=== PATIENT | female | born 1975 | race Caucasian/White ===

== ENCOUNTER 2017-03-14 13:42 | Inpatient (IN) | payer MEDICARE ==
[2017-03-14] MEDS ORDERED: Sodium Chloride 0.45% 1,000 ML IV ONE (13:54)
--- NOTE | 2017-03-14 14:03 | ED Physician Chart ---
Chief Complaint/HPI - Patient Information Date Seen:: 03/14/17 Time Seen:: 13:58 Chief Complaint:: DIABETES UNCONTROLLED History of Present Illness:: THIS IS A 42 YO SENT FROM AN ECF ON A 14 DAY HOLD FOR SUICIDAL ATTEMPT TWO DAYS AGO. SHE WAS SENT HERE FOR EVALUATION AND TREATMENT OF HER CONDITION. THE GLUCOSE HAS BEEN UNCONTROLLED AND SHE HAS HAD SIGNIFICANT VOMITING. WITH COMPLAINTS OF ABDOMINAL PAIN. SHE FOUND TO BE POSITIVE FOR METHAMPHETAMINES OVER THE LAST FEW DAYS. Allergies:: Allergies Allergy/AdvReac Type Severity Reaction Status Date / Time Penicillins [PCN] AdvReac Verified 03/14/17 13:46 Vitals:: Vital Signs - 8 hr 03/14/17 13:47 Temp 97.4 F HR 70 RR 16 BP 122/72 O2 Sat % 98 Historian:: EMS, Medical Records Review:: Nurse's Note Reviewed Review of Systems - Review of Systems General/Constitutional: No fever, No chills, No weight loss, No weakness, No diaphoresis, No edema, No loss of appetite, Other (THE PATIENT IS UNABLE TO GIVE AN ACCURATE REVIEW SYSTEMS AT THIS TIME.) Skin: No skin lesions, No rash, No bruising Head: No headache, No light-headedness Eyes: No loss of vision, No pain, No diplopia ENT: No earache, No nasal drainage, No sore throat, No tinnitus Neck: No neck pain, No swelling, No thyromegaly, No stiffness, No mass noted Cardio Vascular: No chest pain, No palpitations, No PND, No orthopnea, No edema Pulmonary: No SOB, No cough, No sputum, No wheezing GI: No nausea, No vomiting, No diarrhea, No pain, No melena, No hematochezia, No constipation, No hematemesis G/U: No dysuria, No frequency, No hematuria Musculoskeletal: No bone or joint pain, No back pain, No muscle pain Endocrine: No polyuria, No polydipsia Psychiatric: No prior psych history, No depression, No anxiety, No suicidal ideation Hematopoietic: No bruising, No lymphadenopathy Allergic/Immuno: No urticaria, No angioedema Neurological: No syncope, No focal symptoms, No weakness, No paresthesia, No headache, No seizure, No dizziness, No confusion, No vertigo Past Medical History - Past Medical History Obtainable: Yes Past Medical History: DM, Other (PSYCHOSIS AND DRUG ABUSER) Family History: None Social History: Smoker, No Alcohol, No Drug Use (METH) Surgical History: Cholecystectomy Family Medical History - Family Member Nephew History Unknown: Yes Physical Exam - Physical Examination General/Constitutional: Well-developed, well-nourished, Alert, No distress, GCS 15, Non-toxic appearing, Ambulatory Other Gen/Cons comments:: LETHARGIC AND RETCHING Head: Atraumatic Eyes: Lids, conjuctiva normal, PERRL, EOMI Skin: Nl inspection, No rash, No skin lesions, No ecchymosis, Well hydrated, No lymphadenopathy ENMT: External ears, nose nl, Nasal exam nl, Lips, teeth, gums nl Neck: Nontender, Full ROM w/o pain, No JVD, No nuchal rigidity, No bruit, No mass, No stridor Respiratory: Nl effort/Exclusion, Clear to Auscultation, No Wheeze/Rhonchi/Rales Cardio Vascular: RRR, No murmur, gallop, rubs, NL S1 S2 GI: No organomegaly, No hernia, Normal BS's, Nondistended, No mass/bruits, No McBurney tenderness Other GI comments:: GENERALIZED TENDERNESS OF THE ABDOMEN : No CVA tenderness Extremities: No tenderness or effusion, Full ROM, normal strength in all extremities, No edema, Normal digits & nails Neuro/Psych: Alert/oriented, DTR's symmetric, Normal sensory exam, Normal motor strength, Judgement/insight normal, Mood normal, Normal gait, No focal deficits Misc: normal gait, Normal back, No paraspinal tenderness Labs/Radiology/EKG Results - Lab Results Results: Laboratory Tests 03/14/17 13:49 POC Glucose 217 H Abnormal Lab Results 03/14/17 03/14/17 03/14/17 13:49 14:00 14:00 WBC RBC Hgb Hct MCV MCH MCHC Differential RDW Plt Count MPV Specimen Source Sample Site pH pCO2 pO2 HCO3 Base Excess O2 Saturation Avelino Test Vent Rate Inspired O2 Tidal Volume PEEP Pressure (ins/psv/peep) Critical Value Sodium Potassium Chloride Carbon Dioxide Anion Gap BUN Creatinine Est GFR ( Amer) Est GFR (Non-Af Amer) BUN/Creatinine Ratio Glucose POC Glucose 217 H Hemoglobin A1c % Calcium Total Bilirubin AST ALT Alkaline Phosphatase Troponin I 0.01 Total Protein Albumin Globulin Albumin/Globulin Ratio Triglycerides 100 Cholesterol 152 LDL Cholesterol Direct 80 HDL Cholesterol 65 TSH 03/14/17 03/14/17 03/14/17 14:00 14:35 14:40 WBC 12.9 H RBC 4.57 Hgb 12.6 Hct 38.3 MCV 83.8 MCH 27.6 MCHC Differential 32.9 RDW 15.7 Plt Count 346 MPV 8.2 Specimen Source Sample Site pH pCO2 pO2 HCO3 Base Excess O2 Saturation Avelino Test Vent Rate Inspired O2 Tidal Volume PEEP Pressure (ins/psv/peep) Critical Value Sodium 130 L Potassium 4.2 Chloride 102 Carbon Dioxide 16.7 L Anion Gap 15.5 BUN 22 Creatinine 0.6 Est GFR ( Amer) > 60.0 Est GFR (Non-Af Amer) > 60.0 BUN/Creatinine Ratio 36.7 Glucose 231 H POC Glucose Hemoglobin A1c % Calcium 9.5 Total Bilirubin 0.7 AST 12 L ALT 19 Alkaline Phosphatase 95 Troponin I Total Protein 7.7 Albumin 4.6 Globulin 3.1 Albumin/Globulin Ratio 1.5 Triglycerides Cholesterol LDL Cholesterol Direct HDL Cholesterol TSH 0.80 03/14/17 03/14/17 14:40 16:00 WBC RBC Hgb Hct MCV MCH MCHC Differential RDW Plt Count MPV Specimen Source Arterial Sample Site Right Radial pH 7.41 pCO2 41.0 pO2 98.0 HCO3 25.9 Base Excess 1.2 O2 Saturation 98.0 Avelino Test YES Vent Rate NA Inspired O2 21 Tidal Volume NA PEEP NA Pressure (ins/psv/peep) NA Critical Value E.PICHARDO Sodium Potassium Chloride Carbon Dioxide Anion Gap BUN Creatinine Est GFR ( Amer) Est GFR (Non-Af Amer) BUN/Creatinine Ratio Glucose POC Glucose Hemoglobin A1c % 9.4 H Calcium Total Bilirubin AST ALT Alkaline Phosphatase Troponin I Total Protein Albumin Globulin Albumin/Globulin Ratio Triglycerides Cholesterol LDL Cholesterol Direct HDL Cholesterol TSH - EKG Interpretations EKG Time:: 17:59 Rate & Rhythm: 78, SINUS [place]: LEFT AXIS Assessment - Assessment General Assessment: DIABETES MELLITUS UNCONTROLLED SUICIDAL ATTEMPT DIABETIC FOOT ULCER. DRUG ABUSE ED Septic Shock - . Is Septic Shock (SBP<90, OR Lactate>4 mmol\L) present?: No - <6hrs of presentation: Vital Signs: Vital Signs - 8 hr 03/14/17 13:47 Temp 97.4 F HR 70 RR 16 BP 122/72 O2 Sat % 98 Reassessment (Disposition) - Reassessment Reassessment Condition:: Improved - Diagnosis Diagnosis:: DIABETES MELLITUS UNCONTROLLED DIABETIC FOOT ULCER SUICIDAL ATTEMPT DRUG ABUSE - Patient Disposition Discharge/Transfer:: Acute Care w/in this hosp Admitted to:: Telemetry Admitting Medical Physician:: Shaka Blankenship Condition at Disposition:: Improved ED Discharge Plan - Patient Disposition Admit/Discharge/Transfer: Acute Care w/in this hosp Condition at Disposition: Guarded
[2017-03-14 14:54] LABS: HEMATOCRIT 38.3 % (35.0-45.0); HEMOGLOBIN 12.6 gm/dL (11.7-15.5); MEAN CELL VOLUME 83.8 fl (81-100); MEAN CORPUSCULAR HEMOGLOBIN 27.6 pg (27.0-31.0); MEAN CORPUSCULAR HGB CONC 32.9 pg (28.0-36.0); MEAN PLATELET VOLUME 8.2 fl; NEUTROPHILE ABSOLUTE 11.9 Th/cmm (1.8-8.0); PLATELET COUNT 346 Th/cmm (150-400); RED BLOOD COUNT 4.57 Mil/cmm (3.80-5.10); RED CELL DISTRIBUTION WIDTH 15.7 % (11.5-20.0)
[2017-03-14 15:01] LABS: WHITE BLOOD COUNT 12.9 Th/cmm (4.8-10.8)
[2017-03-14 15:47] LABS: ALB/GLOB RATIO 1.5 (1.0-1.8); ALKALINE PHOSPHATASE 95 U/L (34-104); ANION GAP 15.5 (7.0-16.0); BILIRUBIN,TOTAL 0.7 mg/dL (0.3-1.0); BUN - UREA NITROGEN 22 mg/dL (7-25); BUN/CREATININE RATIO 36.7; CALCIUM SERUM 9.5 mg/dL (8.6-10.3); CARBON DIOXIDE 16.7 mEq/L (21.0-31.0); CHLORIDE 102 mEq/L (98-107); CREATININE - SERUM 0.6 mg/dL (0.6-1.2); GLUCOSE 231 mg/dL (70-105); POTASSIUM SERUM 4.2 mEq/L (3.5-5.1); SGOT 12 U/L (13-39); SGPT/ALT 19 U/L (7-52); SODIUM SERUM 130 mEq/L (136-145)
[2017-03-14 15:48] LABS: CHOLESTEROL 152 mg/dL (<200); TRIGLYCERIDES 100 mg/dL (<150)
[2017-03-14 16:12] LABS: ABG SOURCE Arterial; ALLEN TEST YES; BE(B) 1.2 mEq/L (-3.0-3.0); FIO2 21; HCO3 25.9 mEq/L (20.0-26.0); pH 7.41 (7.35-7.45)
[2017-03-14] MEDS ORDERED: Sodium Chloride 0.45% 500 ML IV ONE (17:17)
[2017-03-14] MEDS ORDERED: Albuterol Nebulizer 2.5mg/3mL HHN PRN (19:01)
[2017-03-14] MEDS ORDERED: Maalox 30 mL Cup PO PRN (19:01)
[2017-03-14] MEDS ORDERED: guaiFENesin 200 MG/10 ML UDC PO PRN (19:01)
[2017-03-14 20:01] LABS: INR 0.94 (0.5-1.4); PROTHROMBIN TIME (TEST) 9.8 SECONDS (9.5-11.5)
[2017-03-14] MEDS: Sodium Chloride 0.9% 1,000 ML IV SCH (22:41)
[2017-03-14] MEDS: Levofloxacin 500mg/100mL 500 MG/100 ML BAG IV SCH (22:44)
[2017-03-14] MEDS: INSULIN ASPART, RECOMBINANT 100 UNITS/ML SUBQ SCH (22:50)
[2017-03-14] MEDS: Insulin Detemir 100 units/mL 10mL Vial SUBQ SCH (22:50)
--- NOTE | 2017-03-15 00:16 | Admit Criteria Form ---
Admit Criteria Forms - Admit Criteria Diagnosis: PSYCHIATRIC DISORDERS (Place 'X' for any and all applicable criteria): Ongoing inpatient care may be needed for 1 or more of the following(1)(2)(3)(4)( 6)(7)(8): [X ]I. Danger to self or others not manageable at lower level of care. [ ]II. Grave disability (eg, inability to perform self care necessary at lower level of care) [ ]III. Agitation or inappropriate behavior interfering with care for primary condition (eg, attempting to discontinue lines or drains prematurely, unable to cooperate with respiratory care) [ ]IV. Severe disability or disorder indicated by ALL of the following: [ ]a) Severe behavioral health disorder-related symptoms or condition indicated by 1 or more of the following: [ ]i) Severe problem with cognition, memory, judgment, or impulse control [ ]ii) Severe clinical manifestations (eg, hallucinations, delusions, other acute psychotic symptoms, amanda, extreme agitation or anxiety) [ ]b) Patient management at lower level of care is not feasible until acute intervention or modification is initiated. Extended stay beyond goal length of stay for the primary condition may be needed until ALLof the following are present(1)(2)(3)(4)7)63)(23): [ ]a) Danger to self or others is absent or manageable at lower level of care [ ]b) Behavior crisis management, including physical or chemical restraints, is required and is not available at a lower level of care. [ ]c) Behavioral symptoms (e.g., agitation, somnolence, inappropriate behavior) are present, and are not manageable at a lower level of care. [ ]d) Patient cannot understand follow-up treatment and crisis plan. [ ]e) Provider and supports are sufficiently available at lower level of care. [ ]f) Patient can participate (e.g., verify absence of plan for harm) and is in needed of monitoring. The original [facility] [employer] content created by [facility] [employer] has been revised. The portions of the content which have been revised are identified through the use of italic text or in bold, and [facility] [employer] has neither reviewed nor approved the modified material. All other unmodified content is copyright [facility]. Please see references footnoted in the original [facility] edition 2017 Admit Criteria Met?: Yes
[2017-03-15] MEDS: INSULIN ASPART, RECOMBINANT 100 UNITS/ML SUBQ SCH ×4 (06:43→21:35)
[2017-03-15] MEDS: Sodium Chloride 0.9% 1,000 ML IV SCH ×2 (06:44→10:41)
--- NOTE | 2017-03-15 09:18 | Diagnostic Imaging Report ---
CHEST X-RAY: AP view INDICATION: Shortness of breath COMPARISON: None FINDINGS: Left-sided Port-A-Cath is seen with tip in the cavoatrial junction. There is no focal consolidation or pleural effusions The heart is normal in size. The osseous structures demonstrate no acute abnormalities. IMPRESSION: No acute cardiopulmonary disease. Left-sided Port-A-Cath noted with tip in the cavoatrial junction.
--- NOTE | 2017-03-15 11:24 | Internal Medicine Prog Note ---
Internal Medicine Subjective - Subjective Service Date: 03/15/17 ([id number]) Internal Medicine Objective - Results Result Diagrams: 03/14/17 14:35 03/14/17 14:40 Recent Labs: Laboratory Last Values WBC 12.9 Th/cmm (4.8-10.8) H 03/14/17 14:35 RBC 4.57 Mil/cmm (3.80-5.10) 03/14/17 14:35 Hgb 12.6 gm/dL (11.7-15.5) 03/14/17 14:35 Hct 38.3 % (35.0-45.0) 03/14/17 14:35 MCV 83.8 fl (81-100) 03/14/17 14:35 MCH 27.6 pg (27.0-31.0) 03/14/17 14:35 MCHC Differential 32.9 pg (28.0-36.0) 03/14/17 14:35 RDW 15.7 % (11.5-20.0) 03/14/17 14:35 Plt Count 346 Th/cmm (150-400) 03/14/17 14:35 MPV 8.2 fl 03/14/17 14:35 PT 9.8 SECONDS (9.5-11.5) 03/14/17 18:50 INR 0.94 (0.5-1.4) 03/14/17 18:50 PTT (Actin FS) 20.1 SECONDS (26.0-38.0) L 03/14/17 18:50 Specimen Source Arterial 03/14/17 16:00 Sample Site Right Radial 03/14/17 16:00 pH 7.41 (7.35-7.45) 03/14/17 16:00 pCO2 41.0 mmHg (35.0-45.0) 03/14/17 16:00 pO2 98.0 mmHg (80.0-100.0) 03/14/17 16:00 HCO3 25.9 mEq/L (20.0-26.0) 03/14/17 16:00 Base Excess 1.2 mEq/L (-3.0-3.0) 03/14/17 16:00 O2 Saturation 98.0 % (92.0-100.0) 03/14/17 16:00 Avelino Test YES 03/14/17 16:00 Vent Rate NA 03/14/17 16:00 Inspired O2 21 03/14/17 16:00 Tidal Volume NA 03/14/17 16:00 PEEP NA 03/14/17 16:00 Pressure (ins/psv/peep) NA 03/14/17 16:00 Critical Value E.PICHARDO 03/14/17 16:00 Sodium 130 mEq/L (136-145) L 03/14/17 14:40 Potassium 4.2 mEq/L (3.5-5.1) 03/14/17 14:40 Chloride 102 mEq/L (98-107) 03/14/17 14:40 Carbon Dioxide 16.7 mEq/L (21.0-31.0) L 03/14/17 14:40 Anion Gap 15.5 (7.0-16.0) 03/14/17 14:40 BUN 22 mg/dL (7-25) 03/14/17 14:40 Creatinine 0.6 mg/dL (0.6-1.2) 03/14/17 14:40 Est GFR ( Amer) > 60.0 ml/min (>90) 03/14/17 14:40 Est GFR (Non-Af Amer) > 60.0 ml/min 03/14/17 14:40 BUN/Creatinine Ratio 36.7 03/14/17 14:40 Glucose 231 mg/dL (70-105) H 03/14/17 14:40 POC Glucose 70 MG/DL (70 - 105) 03/15/17 06:07 Hemoglobin A1c % 9.4 % (4.0-6.0) H 03/14/17 14:40 Calcium 9.5 mg/dL (8.6-10.3) 03/14/17 14:40 Total Bilirubin 0.7 mg/dL (0.3-1.0) 03/14/17 14:40 AST 12 U/L (13-39) L 03/14/17 14:40 ALT 19 U/L (7-52) 03/14/17 14:40 Alkaline Phosphatase 95 U/L (34-104) 03/14/17 14:40 Troponin I 0.01 ng/mL (0.01-0.05) 03/14/17 14:00 Total Protein 7.7 gm/dL (6.0-8.3) 03/14/17 14:40 Albumin 4.6 gm/dL (3.7-5.3) 03/14/17 14:40 Globulin 3.1 gm/dL 03/14/17 14:40 Albumin/Globulin Ratio 1.5 (1.0-1.8) 03/14/17 14:40 Triglycerides 100 mg/dL (<150) 03/14/17 14:00 Cholesterol 152 mg/dL (<200) 03/14/17 14:00 LDL Cholesterol Direct 80 mg/dL (75-193) 03/14/17 14:00 HDL Cholesterol 65 mg/dL (23-92) 03/14/17 14:00 TSH 0.80 uIU/ml (0.34-5.60) 03/14/17 14:00 Serum , Qual NEGATIVE (NEGATIVE) 03/14/17 14:10 RPR NONREACTIVE (NONREACTIVE) 03/14/17 14:40 - Physical Exam Vitals and I&O: Vital Signs Temp 97.1 F 03/15/17 10:59 Pulse 99 03/15/17 10:59 Resp 18 03/15/17 10:59 BP 142/84 03/15/17 10:59 Pulse Ox 100 03/15/17 10:59 Intake & Output 03/14/17 03/15/17 03/15/17 18:59 06:59 18:59 Intake Total 250 1000 Balance 250 1000 Weight (lbs) 144 lb 144 lb Intake: Intake, IV Amount 100 1000 Levofloxacin 500mg/100mL 100 500 mg In 100 ml @ 100 mls/hr IV Q24HR ANA LUISA Rx#: [id number] Sodium Chloride 0.9% 1, 1000 000 ml @ 100 mls/hr IV . Q10H ANA LUISA Rx#:[id number] Oral 150 Other: # Voids 1 Active Medications: Current Medications Acetaminophen (Tylenol) 650 mg PO Q4H PRN PRN Reason: Pain Or Fever above 101 Stop: 05/13/17 19:00 Acetaminophen (Tylenol) 650 mg PO Q4HR PRN PRN Reason: Pain (Mild) Stop: 05/13/17 19:52 Al Hydrox/Mg Hydrox/Simethicone (Maalox) 30 ml PO Q6H PRN PRN Reason: Dyspepsia Stop: 05/13/17 19:00 Albuterol Sulfate (Albuterol 2.5mg/3ml Neb Ud) 2.5 mg HHN Q2HRT PRN PRN Reason: Shortness of Breath or Wheeze Stop: 05/13/17 19:00 Clonidine HCl (Catapres) 0.1 mg PO Q6H PRN PRN Reason: SBP GREATER THAN 160 Stop: 05/13/17 19:00 Guaifenesin (Robitussin) 200 mg PO Q4HR PRN PRN Reason: Cough or Congestion Stop: 05/13/17 19:00 Heparin Sodium (Porcine) (Heparin) 5,000 units SUBQ Q12HR ANA LUISA Stop: 05/13/17 20:59 Last Admin: 03/15/17 09:38 Dose: Not Given Hydroxyzine Pamoate (Vistaril) 50 mg PO Q4H PRN PRN Reason: Anxiety Stop: 05/13/17 20:28 Levofloxacin (Levaquin Pb) 500 mg in 100 mls @ 100 mls/hr IV Q24HR ANA LUISA Stop: 05/13/17 20:59 Last Infusion: 03/15/17 06:44 Dose: Infused Sodium Chloride (Nacl 0.9%) 1,000 mls @ 100 mls/hr IV .Q10H ANA LUISA Stop: 05/13/17 19:14 Last Admin: 03/15/17 10:41 Dose: 100 mls/hr Vancomycin HCl 1.25 gm/ Sodium (Chloride) 250 mls @ 165 mls/hr IV Q12H ANA LUISA Stop: 05/14/17 09:59 Last Admin: 03/15/17 10:36 Dose: 165 mls/hr Insulin Aspart (Novolog) 0 units SUBQ ACHS ANA LUISA PRN Reason: Protocol Stop: 05/13/17 20:59 Last Admin: 03/15/17 06:43 Dose: Not Given Insulin Detemir (Levemir Insulin) 20 units SUBQ HS ANA LUISA PRN Reason: Protocol Stop: 05/13/17 20:59 Last Admin: 03/14/17 22:50 Dose: 20 units Lorazepam (Ativan) 2 mg IM Q4HR PRN; Protocol PRN Reason: Cramp Stop: 05/13/17 13:51 Last Admin: 03/14/17 15:20 Dose: 2 mg Miscellaneous (Vancomycin Iv Per Pharmacy) 1 ea MC PRN ANA LUISA Stop: 05/13/17 19:14 Ondansetron HCl (Zofran) 4 mg IV Q8H PRN PRN Reason: Nausea / Vomiting Stop: 05/13/17 19:00 Last Admin: 03/14/17 23:08 Dose: 4 mg Trazodone HCl (Desyrel) 50 mg PO HS PRN; Protocol PRN Reason: Insomnia Stop: 05/13/17 19:52 Zolpidem Tartrate (Ambien) 10 mg PO HS PRN PRN Reason: Insomnia Stop: 05/13/17 19:00 Last Admin: 03/15/17 02:37 Dose: 10 mg Internal Medicine Assmt/Plan - Assessment Assessment: UNCONTROLLED DM HYPONATREMIA SUICIDAL IDEATION DIABETIC FOOT ULCER
--- NOTE | 2017-03-15 11:50 | History & Physical ---
ADMIT DATE: 03/15/2017 CHIEF COMPLAINT: Uncontrolled diabetes. HISTORY OF PRESENT ILLNESS: This is a 42-year-old female who was sent from [facility] who was brought here for vomiting and abdominal pain. In the ER, the patient's glucose level was found to be high at 231. For this reason, the patient is admitted at [facility] and the patient was on a 14-day hold for suicidal attempt. Upon examination, the patient denies any nausea, vomiting or any abdominal pain at this time. PAST MEDICAL HISTORY: Diabetes, psychosis and methamphetamine abuse. SOCIAL HISTORY: The patient smokes half a pack per day. Denies any alcohol. Positive for methamphetamine. SURGICAL HISTORY: Cholecystectomy. FAMILY HISTORY: Noncontributory. REVIEW OF SYSTEMS: GENERAL: Denies any fevers and chills. CARDIOVASCULAR: Denies any chest pain. RESPIRATORY: Denies any shortness of breath. GASTROINTESTINAL: Denies any nausea, vomiting. GENITOURINARY: Denies any dysuria. All other systems are reviewed by me and are negative. PHYSICAL EXAMINATION: GENERAL: The patient is well developed, well nourished, no acute distress. VITAL SIGNS: Temperature 97.1, heart rate 99, blood pressure 142/84, O2 100%. HEENT: Head; normocephalic, atraumatic. NECK: Supple. No mass. LUNGS: Clear bilaterally. HEART: Regular rate and rhythm. ABDOMEN: Soft, nontender. LABORATORY DATA: WBC 12.9, H and H 12.6 and 38.3. Sodium 130, potassium 4.2, chloride 102, BUN 22, creatinine 0.6. Hemoglobin A1c of 9.4. DIAGNOSTICS: The patient had a chest x-ray done in the ER and the impression is no acute cardiopulmonary disease, left-sided Port-A-Cath noted with tip in the cavoatrial junction. ASSESSMENT: Uncontrolled diabetes, acidosis, diabetic foot ulcer, suicidal ideation, hyponatremia. PLAN: The patient to be admitted to the telemetry unit. We will check patient's glucose level. Monitor the patient's labs. Keep the patient on IV fluids for hydration and will get a Psych consult. Also a Wound consult as well. The patient will be placed on empiric IV antibiotics of Levaquin. We will continue to monitor the patient. JOB# [id number]
[2017-03-15 14:43] LABS: AMPHETAMINE URINE NEGATIVE (NEGATIVE); BARBITURATES URINE NEGATIVE (NEGATIVE); METHADONE URINE NEGATIVE (NEGATIVE)
--- NOTE | 2017-03-15 20:01 | Consultation ---
DATE OF CONSULTATION: 03/15/2017 HISTORY OF PRESENT ILLNESS: A 42-year-old female who had been on a 14-day hold at [facility] for a suicide attempt. The patient with significant vomiting, complains of abdominal pain and found to be methamphetamine positive. On [id number], the patient is not the best historian, irritable, states that she was never suicidal, although it was noted that she did make an attempt. The patient minimizing, she does not want to talk to me. She does mumbling at times. PAST PSYCHIATRIC HISTORY: She states she has never attempted before although there is documented attempt. FAMILY HISTORY: Noncontributory. SOCIAL HISTORY: The patient is living in ____ [facility], states she is with a daughter. Denies drugs, but apparently her urine was positive for methamphetamine. MEDICAL: Uncontrolled diabetes, diabetic foot ulcer. MENTAL STATUS EXAMINATION: Stated age, a little eye contact. Speech mumbling, not talking much, noted to be irritable, guarded. Mood "bad." Affect angry. Thought processes were grossly linear. The patient is guarded about any SI or HI. No overt psychotic symptoms. Insight and judgment diminished. PROVISIONAL DIAGNOSES: Major depression, unspecified severe substance-induced mood disorder, meth use disorder, unspecified. MEDICAL: Please see full H and P. RECOMMENDATIONS AND PLAN: Continue 14-day hold. Try to increase collateral. Once the patient is more medically stabilized, we will reinitiate antidepressant medications. [facility]# [id number]
[2017-03-15] MEDS: Levofloxacin 500mg/100mL 500 MG/100 ML BAG IV SCH (21:07)
[2017-03-15] MEDS: Insulin Detemir 100 units/mL 10mL Vial SUBQ SCH (21:32)
[2017-03-16] MEDS: Sodium Chloride 0.9% 1,000 ML IV SCH (01:13)
[2017-03-16] MEDS: INSULIN ASPART, RECOMBINANT 100 UNITS/ML SUBQ SCH ×4 (08:00→21:25)
[2017-03-16] MEDS: Escitalopram Oxalate 5 mg Tab PO SCH (09:37)
--- NOTE | 2017-03-16 13:15 | Internal Medicine Prog Note ---
Internal Medicine Subjective - Subjective Service Date: 03/16/17 Patient seen and examined:: with staff Patient is:: awake, verbal Per staff patient has:: no adverse event Internal Medicine Objective - Results Result Diagrams: 03/14/17 14:35 03/14/17 14:40 Recent Labs: Laboratory Last Values WBC 12.9 Th/cmm (4.8-10.8) H 03/14/17 14:35 RBC 4.57 Mil/cmm (3.80-5.10) 03/14/17 14:35 Hgb 12.6 gm/dL (11.7-15.5) 03/14/17 14:35 Hct 38.3 % (35.0-45.0) 03/14/17 14:35 MCV 83.8 fl (81-100) 03/14/17 14:35 MCH 27.6 pg (27.0-31.0) 03/14/17 14:35 MCHC Differential 32.9 pg (28.0-36.0) 03/14/17 14:35 RDW 15.7 % (11.5-20.0) 03/14/17 14:35 Plt Count 346 Th/cmm (150-400) 03/14/17 14:35 MPV 8.2 fl 03/14/17 14:35 PT 9.8 SECONDS (9.5-11.5) 03/14/17 18:50 INR 0.94 (0.5-1.4) 03/14/17 18:50 PTT (Actin FS) 20.1 SECONDS (26.0-38.0) L 03/14/17 18:50 Specimen Source Arterial 03/14/17 16:00 Sample Site Right Radial 03/14/17 16:00 pH 7.41 (7.35-7.45) 03/14/17 16:00 pCO2 41.0 mmHg (35.0-45.0) 03/14/17 16:00 pO2 98.0 mmHg (80.0-100.0) 03/14/17 16:00 HCO3 25.9 mEq/L (20.0-26.0) 03/14/17 16:00 Base Excess 1.2 mEq/L (-3.0-3.0) 03/14/17 16:00 O2 Saturation 98.0 % (92.0-100.0) 03/14/17 16:00 Avelino Test YES 03/14/17 16:00 Vent Rate NA 03/14/17 16:00 Inspired O2 21 03/14/17 16:00 Tidal Volume NA 03/14/17 16:00 PEEP NA 03/14/17 16:00 Pressure (ins/psv/peep) NA 03/14/17 16:00 Critical Value E.PICHARDO 03/14/17 16:00 Sodium 130 mEq/L (136-145) L 03/14/17 14:40 Potassium 4.2 mEq/L (3.5-5.1) 03/14/17 14:40 Chloride 102 mEq/L (98-107) 03/14/17 14:40 Carbon Dioxide 16.7 mEq/L (21.0-31.0) L 03/14/17 14:40 Anion Gap 15.5 (7.0-16.0) 03/14/17 14:40 BUN 22 mg/dL (7-25) 03/14/17 14:40 Creatinine 0.6 mg/dL (0.6-1.2) 03/14/17 14:40 Est GFR ( Amer) > 60.0 ml/min (>90) 03/14/17 14:40 Est GFR (Non-Af Amer) > 60.0 ml/min 03/14/17 14:40 BUN/Creatinine Ratio 36.7 03/14/17 14:40 Glucose 231 mg/dL (70-105) H 03/14/17 14:40 POC Glucose 358 MG/DL (70 - 105) H 03/16/17 12:50 Hemoglobin A1c % 9.4 % (4.0-6.0) H 03/14/17 14:40 Calcium 9.5 mg/dL (8.6-10.3) 03/14/17 14:40 Total Bilirubin 0.7 mg/dL (0.3-1.0) 03/14/17 14:40 AST 12 U/L (13-39) L 03/14/17 14:40 ALT 19 U/L (7-52) 03/14/17 14:40 Alkaline Phosphatase 95 U/L (34-104) 03/14/17 14:40 Troponin I 0.01 ng/mL (0.01-0.05) 03/14/17 14:00 Total Protein 7.7 gm/dL (6.0-8.3) 03/14/17 14:40 Albumin 4.6 gm/dL (3.7-5.3) 03/14/17 14:40 Globulin 3.1 gm/dL 03/14/17 14:40 Albumin/Globulin Ratio 1.5 (1.0-1.8) 03/14/17 14:40 Triglycerides 100 mg/dL (<150) 03/14/17 14:00 Cholesterol 152 mg/dL (<200) 03/14/17 14:00 LDL Cholesterol Direct 80 mg/dL (75-193) 03/14/17 14:00 HDL Cholesterol 65 mg/dL (23-92) 03/14/17 14:00 TSH 0.80 uIU/ml (0.34-5.60) 03/14/17 14:00 Serum , Qual NEGATIVE (NEGATIVE) 03/14/17 14:10 Urine Opiates Screen NEGATIVE (NEGATIVE) 03/15/17 13:00 Urine Methadone Screen NEGATIVE (NEGATIVE) 03/15/17 13:00 Ur Barbiturates Screen NEGATIVE (NEGATIVE) 03/15/17 13:00 Ur Tricyclics Screen NEGATIVE (NEGATIVE) 03/15/17 13:00 Ur Phencyclidine Scrn NEGATIVE (NEGATIVE) 03/15/17 13:00 Amphetamines Screen NEGATIVE (NEGATIVE) 03/15/17 13:00 U Methamphetamines Scrn NEGATIVE (NEGATIVE) 03/15/17 13:00 U Benzodiazepines Scrn POSITIVE (NEGATIVE) H 03/15/17 13:00 U Cocaine Metab Screen NEGATIVE (NEGATIVE) 03/15/17 13:00 U Cannabinoids Screen NEGATIVE (NEGATIVE) 03/15/17 13:00 RPR NONREACTIVE (NONREACTIVE) 03/14/17 14:40 - Physical Exam Vitals and I&O: Vital Signs Temp 98.8 F 03/16/17 08:00 Pulse 93 03/16/17 08:00 Resp 20 03/16/17 08:00 BP 119/78 03/16/17 08:00 Pulse Ox 100 03/15/17 10:59 Intake & Output 03/15/17 03/16/17 03/16/17 18:59 06:59 18:59 Intake Total 1631 1710 250 Balance 1631 1710 250 Weight (lbs) 144 lb 142 lb Intake: Intake, IV Amount 1231 1350 250 Levofloxacin 500mg/100mL 100 500 mg In 100 ml @ 100 mls/hr IV Q24HR [facility] Rx#: [id number] Sodium Chloride 0.9% 1, 1000 1000 000 ml @ 100 mls/hr IV . Q10H [facility] Rx#:[id number] Vancomycin HCl 1.25 gm In 231 250 250 Sodium Chloride 0.9% 250 ml @ 165 mls/hr IV Q12H [facility] Rx#:[id number] Oral 400 360 Other: # Voids 3 4 # Bowel Movements 1 0 Active Medications: Current Medications Acetaminophen (Tylenol) 650 mg PO Q4H PRN PRN Reason: Pain Or Fever above 101 Stop: 05/13/17 19:00 Acetaminophen (Tylenol) 650 mg PO Q4HR PRN PRN Reason: Pain (Mild) Stop: 05/13/17 19:52 Al Hydrox/Mg Hydrox/Simethicone (Maalox) 30 ml PO Q6H PRN PRN Reason: Dyspepsia Stop: 05/13/17 19:00 Albuterol Sulfate (Albuterol 2.5mg/3ml Neb Ud) 2.5 mg HHN Q2HRT PRN PRN Reason: Shortness of Breath or Wheeze Stop: 05/13/17 19:00 Clonidine HCl (Catapres) 0.1 mg PO Q6H PRN PRN Reason: SBP GREATER THAN 160 Stop: 05/13/17 19:00 Escitalopram Oxalate (Lexapro) 5 mg PO DAILY [facility] PRN Reason: Protocol Stop: 05/15/17 08:59 Last Admin: 03/16/17 09:37 Dose: 5 mg Guaifenesin (Robitussin) 200 mg PO Q4HR PRN PRN Reason: Cough or Congestion Stop: 05/13/17 19:00 Heparin Sodium (Porcine) (Heparin) 5,000 units SUBQ Q12HR [facility] Stop: 05/13/17 20:59 Last Admin: 03/16/17 09:36 Dose: 5,000 units Hydroxyzine Pamoate (Vistaril) 50 mg PO Q4H PRN PRN Reason: Anxiety Stop: 05/13/17 20:28 Last Admin: 03/15/17 18:34 Dose: 50 mg Levofloxacin (Levaquin Pb) 500 mg in 100 mls @ 100 mls/hr IV Q24HR [facility] Stop: 05/13/17 20:59 Last Infusion: 03/15/17 22:07 Dose: Infused Sodium Chloride (Nacl 0.9%) 1,000 mls @ 100 mls/hr IV .Q10H [facility] Stop: 05/13/17 19:14 Last Admin: 03/16/17 01:13 Dose: 100 mls/hr Vancomycin HCl 1.25 gm/ Sodium (Chloride) 250 mls @ 165 mls/hr IV Q12H [facility] Stop: 05/14/17 09:59 Last Infusion: 03/16/17 13:06 Dose: Infused Insulin Aspart (Novolog) 0 units SUBQ ACHS [facility] PRN Reason: Protocol Stop: 05/13/17 20:59 Last Admin: 03/16/17 13:03 Dose: 8 unit Insulin Detemir (Levemir Insulin) 20 units SUBQ HS [facility] PRN Reason: Protocol Stop: 05/13/17 20:59 Last Admin: 03/15/17 21:32 Dose: 20 units Lorazepam (Ativan) 2 mg IM Q4HR PRN; Protocol PRN Reason: Cramp Stop: 05/13/17 13:51 Last Admin: 03/14/17 15:20 Dose: 2 mg Miscellaneous (Vancomycin Iv Per Pharmacy) 1 ea [facility] PRN [facility] Stop: 05/13/17 19:14 Ondansetron HCl (Zofran) 4 mg IV Q8H PRN PRN Reason: Nausea / Vomiting Stop: 05/13/17 19:00 Last Admin: 03/14/17 23:08 Dose: 4 mg Trazodone HCl (Desyrel) 50 mg PO HS PRN; Protocol PRN Reason: Insomnia Stop: 05/13/17 19:52 Zolpidem Tartrate (Ambien) 10 mg PO HS PRN PRN Reason: Insomnia Stop: 05/13/17 19:00 Last Admin: 03/15/17 02:37 Dose: 10 mg General: weak, alert HEENT: NC/AT, PERRLA Neck: Supple Lungs: CTAB Cardiovascular: RRR, Normal S1, Normal S2, without murmur Abdomen: soft, non-tender, non-distended, positive bowel sound Extremities: clear Neurological: no change Internal Medicine Assmt/Plan - Assessment Assessment: UNCONTROLLED DM HYPONATREMIA SUICIDAL IDEATION DIABETIC FOOT ULCER - Plan Plan: continue ivabx am labs ivf for hydration continue current tx Nutritional Asmnt/Malnutr-PDOC - Dietary Evaluation Malnutrition Findings (Please click <Entered> for more info): Nutritional Asmnt/Malnutrition Start: 03/15/17 11: 32 Text: Status: Complete Freq: Document 03/15/17 11:33 GSUN (Rec: 03/15/17 11:50 GSUN [email or web address]) Nutritional Asmnt/Malnutrition Patient General Information Nutritional Screening Consult Diagnosis Uncontrolled DM, hyponatremia, suicidal ideation, diabetic foot ulcer Pertinent Medical Hx/Surgical Hx ER: DM, psychosis, drug abuse meth, smoker, cholecystectomy Subjective Information 42 year old female, 5250, sitter at bedside. RD consult for BG. Pt was lethargic and guarded during visit, unable to compelte physical assessment. Unable to obtain CBW due to bedscale improperly calibrated. Pt reported UBW 130lb, recent weight loss CBW around 125lb, did not eleborate. Spoke to FINANCIAL FOUNDATIONS ASSOCIATE at bedside, FINANCIAL FOUNDATIONS ASSOCIATE stated pt slept through breakfast, will encourage lunch. Current Diet Order/ Nutrition Support [address] Pertinent Medications Novolog, Levemir, Vancomycin, Zofran Pertinent Labs 03/14: A1c 9.4, glucose 231 Nutritional Hx/Data Height 5 ft 6 in Height (Calculated Centimeters) 167.6 Current Weight (lbs) 144 lb Weight (Calculated Kilograms) 65.3 Weight (Calculated Grams) 19997.3 Usual body Weight (lbs) 130 Mathias Body Weight 130 Weight Status Approriate GI Symptoms Skin Integrity/Comment: Nathaniel Vidal. guest relations officer: left foot decubitus ulceration. Estimated Nutritional Goals Calories/Kcals/Kg UBW/IBW 130lb/59.1kg Kcals Calculated 1478-1773kcal (25-30kcal/kg) Protein Calculated 59-71g (1-1.2g/kg) Fluid: ml 1478-1773ml (1ml/kcal) Nutritional Problem 1. Problem Problem Altered nutrition related laboratory values related to Etiology DM aeb Signs/Symptoms: A1c 9.4, glucose 231 on adm, diabetic foot ulcer Intervention/Recommendation Comments 1. Continue with [id number]. Informed pt of diet, pt agreeable to plan. 2. Offered DM nutrition edu, pt declined at this time. Pt made aware RD/resources available. Expected Outcomes/Goals Expected Outcomes/Goals 1. PO intake to meet at least 75% of estimated nutritional needs. 2. Improvements in skin integrity, diabetic foot ulcer .
[2017-03-16 18:19] LABS: ANION GAP 9.1 (7.0-16.0); BUN - UREA NITROGEN 11 mg/dL (7-25); BUN/CREATININE RATIO 18.3; CALCIUM SERUM 8.4 mg/dL (8.6-10.3); CARBON DIOXIDE 20.3 mEq/L (21.0-31.0); CHLORIDE 103 mEq/L (98-107); CREATININE - SERUM 0.6 mg/dL (0.6-1.2); GLUCOSE 326 mg/dL (70-105); POTASSIUM SERUM 4.4 mEq/L (3.5-5.1); SODIUM SERUM 128 mEq/L (136-145)
[2017-03-16] MEDS: Levofloxacin 500mg/100mL 500 MG/100 ML BAG IV SCH (21:21)
[2017-03-16] MEDS: Insulin Detemir 100 units/mL 10mL Vial SUBQ SCH (21:25)
[2017-03-16] MEDS ORDERED: Sodium Chloride 0.9% 1,000 ML IV SCH (22:31)
[2017-03-16] MEDS ORDERED: Insulin Detemir 100 units/mL 10mL Vial SUBQ SCH (22:31)
--- NOTE | 2017-03-16 23:03 | Consultation ---
DATE OF CONSULTATION: 03/16/2017 HISTORY OF PRESENT ILLNESS: The patient is seen, chart reviewed, and discussed with staff. The patient is currently in the hospital. She made a suicide attempt to cut herself, currently here, uncontrolled glucose, vomiting, and meth use. On [id number], the patient is more linear, engaged, minimizing her symptoms. She states she wants to go home, is sleeping well and eating well. She seems calm and fairly cooperative. ASSESSMENT: Fair attention ADLs, fair eye contact. Speech within normal limits. Mood "okay." Affect constricted. Thought processes are grossly linear. The patient is denying any SI or HI, but she apparently tried to kill herself and no noted psychotic symptoms. Insight and judgment questionable. PROVISIONAL DIAGNOSIS: Major depression, recurrent, severe, meth use disorder, severe. PLAN: We will continue to monitor and adjust her medications, continue 14-day hold, the patient will likely benefit from continued inpatient hospitalization. Consider an antidepressant upon medical stabilization. [facility]# [id number]
[2017-03-17 06:56] LABS: % BASOPHILS 0.3 % (0.0-2.0); % EOSINOPHILS 2.3 % (0.0-5.0); % LYMPHOCYTES 33.5 % (20.0-50.0); % MONOCYTES 4.5 % (2.0-10.0); % NEUTROPHILS 59.4 % (40.0-80.0); HEMATOCRIT 34.4 % (35.0-45.0); HEMOGLOBIN 11.5 gm/dL (11.7-15.5); MEAN CELL VOLUME 84.4 fl (81-100); MEAN CORPUSCULAR HEMOGLOBIN 28.3 pg (27.0-31.0); MEAN CORPUSCULAR HGB CONC 33.5 pg (28.0-36.0); MEAN PLATELET VOLUME 8.2 fl; NEUTROPHILE ABSOLUTE 3.5 Th/cmm (1.8-8.0); PLATELET COUNT 289 Th/cmm (150-400); RED BLOOD COUNT 4.07 Mil/cmm (3.80-5.10); RED CELL DISTRIBUTION WIDTH 15.3 % (11.5-20.0); WHITE BLOOD COUNT 5.9 Th/cmm (4.8-10.8)
[2017-03-17 07:13] LABS: ANION GAP 6.6 (7.0-16.0); BUN - UREA NITROGEN 17 mg/dL (7-25); BUN/CREATININE RATIO 28.3; CALCIUM SERUM 8.9 mg/dL (8.6-10.3); CARBON DIOXIDE 28.4 mEq/L (21.0-31.0); CHLORIDE 100 mEq/L (98-107); CREATININE - SERUM 0.6 mg/dL (0.6-1.2); GLUCOSE 83 mg/dL (70-105); SODIUM SERUM 131 mEq/L (136-145)
[2017-03-17] MEDS: Escitalopram Oxalate 5 mg Tab PO SCH (09:25)
--- NOTE | 2017-03-17 12:20 | Internal Medicine Prog Note ---
Internal Medicine Subjective - Subjective Service Date: 03/17/17 Patient is:: awake, verbal, agitated Per staff patient has:: no adverse event Internal Medicine Objective - Results Result Diagrams: 03/17/17 06:40 03/17/17 06:40 Recent Labs: Laboratory Last Values WBC 5.9 Th/cmm (4.8-10.8) D 03/17/17 06:40 RBC 4.07 Mil/cmm (3.80-5.10) 03/17/17 06:40 Hgb 11.5 gm/dL (11.7-15.5) L 03/17/17 06:40 Hct 34.4 % (35.0-45.0) L D 03/17/17 06:40 MCV 84.4 fl (81-100) 03/17/17 06:40 MCH 28.3 pg (27.0-31.0) 03/17/17 06:40 MCHC Differential 33.5 pg (28.0-36.0) 03/17/17 06:40 RDW 15.3 % (11.5-20.0) 03/17/17 06:40 Plt Count 289 Th/cmm (150-400) 03/17/17 06:40 MPV 8.2 fl 03/17/17 06:40 Neutrophils % 59.4 % (40.0-80.0) 03/17/17 06:40 Lymphocytes % 33.5 % (20.0-50.0) 03/17/17 06:40 Monocytes % 4.5 % (2.0-10.0) 03/17/17 06:40 Eosinophils % 2.3 % (0.0-5.0) 03/17/17 06:40 Basophils % 0.3 % (0.0-2.0) 03/17/17 06:40 PT 9.8 SECONDS (9.5-11.5) 03/14/17 18:50 INR 0.94 (0.5-1.4) 03/14/17 18:50 PTT (Actin FS) 20.1 SECONDS (26.0-38.0) L 03/14/17 18:50 Specimen Source Arterial 03/14/17 16:00 Sample Site Right Radial 03/14/17 16:00 pH 7.41 (7.35-7.45) 03/14/17 16:00 pCO2 41.0 mmHg (35.0-45.0) 03/14/17 16:00 pO2 98.0 mmHg (80.0-100.0) 03/14/17 16:00 HCO3 25.9 mEq/L (20.0-26.0) 03/14/17 16:00 Base Excess 1.2 mEq/L (-3.0-3.0) 03/14/17 16:00 O2 Saturation 98.0 % (92.0-100.0) 03/14/17 16:00 Avelino Test YES 03/14/17 16:00 Vent Rate NA 03/14/17 16:00 Inspired O2 21 03/14/17 16:00 Tidal Volume NA 03/14/17 16:00 PEEP NA 03/14/17 16:00 Pressure (ins/psv/peep) NA 03/14/17 16:00 Critical Value E.PICHARDO 03/14/17 16:00 Sodium 131 mEq/L (136-145) L 03/17/17 06:40 Potassium 4.0 mEq/L (3.5-5.1) 03/17/17 06:40 Chloride 100 mEq/L (98-107) 03/17/17 06:40 Carbon Dioxide 28.4 mEq/L (21.0-31.0) 03/17/17 06:40 Anion Gap 6.6 (7.0-16.0) L 03/17/17 06:40 BUN 17 mg/dL (7-25) 03/17/17 06:40 Creatinine 0.6 mg/dL (0.6-1.2) 03/17/17 06:40 Est GFR ( Amer) > 60.0 ml/min (>90) 03/17/17 06:40 Est GFR (Non-Af Amer) > 60.0 ml/min 03/17/17 06:40 BUN/Creatinine Ratio 28.3 03/17/17 06:40 Glucose 83 mg/dL (70-105) 03/17/17 06:40 POC Glucose 97 MG/DL (70 - 105) 03/17/17 06:17 Hemoglobin A1c % 9.4 % (4.0-6.0) H 03/14/17 14:40 Calcium 8.9 mg/dL (8.6-10.3) 03/17/17 06:40 Total Bilirubin 0.7 mg/dL (0.3-1.0) 03/14/17 14:40 AST 12 U/L (13-39) L 03/14/17 14:40 ALT 19 U/L (7-52) 03/14/17 14:40 Alkaline Phosphatase 95 U/L (34-104) 03/14/17 14:40 Troponin I 0.01 ng/mL (0.01-0.05) 03/14/17 14:00 Total Protein 7.7 gm/dL (6.0-8.3) 03/14/17 14:40 Albumin 4.6 gm/dL (3.7-5.3) 03/14/17 14:40 Globulin 3.1 gm/dL 03/14/17 14:40 Albumin/Globulin Ratio 1.5 (1.0-1.8) 03/14/17 14:40 Triglycerides 100 mg/dL (<150) 03/14/17 14:00 Cholesterol 152 mg/dL (<200) 03/14/17 14:00 LDL Cholesterol Direct 80 mg/dL (75-193) 03/14/17 14:00 HDL Cholesterol 65 mg/dL (23-92) 03/14/17 14:00 TSH 0.80 uIU/ml (0.34-5.60) 03/14/17 14:00 Serum , Qual NEGATIVE (NEGATIVE) 03/14/17 14:10 Vancomycin Trough 15.8 ug/mL (10-20) 03/16/17 17:30 Urine Opiates Screen NEGATIVE (NEGATIVE) 03/15/17 13:00 Urine Methadone Screen NEGATIVE (NEGATIVE) 03/15/17 13:00 Ur Barbiturates Screen NEGATIVE (NEGATIVE) 03/15/17 13:00 Ur Tricyclics Screen NEGATIVE (NEGATIVE) 03/15/17 13:00 Ur Phencyclidine Scrn NEGATIVE (NEGATIVE) 03/15/17 13:00 Amphetamines Screen NEGATIVE (NEGATIVE) 03/15/17 13:00 U Methamphetamines Scrn NEGATIVE (NEGATIVE) 03/15/17 13:00 U Benzodiazepines Scrn POSITIVE (NEGATIVE) H 03/15/17 13:00 U Cocaine Metab Screen NEGATIVE (NEGATIVE) 03/15/17 13:00 U Cannabinoids Screen NEGATIVE (NEGATIVE) 03/15/17 13:00 RPR NONREACTIVE (NONREACTIVE) 03/14/17 14:40 - Physical Exam Vitals and I&O: Vital Signs Temp 97.3 F 03/17/17 11:51 Pulse 95 03/17/17 11:51 Resp 20 03/17/17 11:51 BP 148/82 03/17/17 11:51 Pulse Ox 97 03/17/17 11:51 Intake & Output 03/16/17 03/17/17 03/17/17 18:59 06:59 18:59 Intake Total 250 250 480 Balance 250 250 480 Weight (lbs) 142 lb 142 lb 142 lb Intake: Intake, IV Amount 250 250 Vancomycin HCl 1.25 gm In 250 250 Sodium Chloride 0.9% 250 ml @ 165 mls/hr IV Q12H [facility] Rx#:[id number] Oral 480 Other: Stool Characteristics Soft Active Medications: Current Medications Acetaminophen (Tylenol) 650 mg PO Q4H PRN PRN Reason: Pain Or Fever above 101 Stop: 05/13/17 19:00 Acetaminophen (Tylenol) 650 mg PO Q4HR PRN PRN Reason: Pain (Mild) Stop: 05/13/17 19:52 Al Hydrox/Mg Hydrox/Simethicone (Maalox) 30 ml PO Q6H PRN PRN Reason: Dyspepsia Stop: 05/13/17 19:00 Albuterol Sulfate (Albuterol 2.5mg/3ml Neb Ud) 2.5 mg HHN Q2HRT PRN PRN Reason: Shortness of Breath or Wheeze Stop: 05/13/17 19:00 Clonidine HCl (Catapres) 0.1 mg PO Q6H PRN PRN Reason: SBP GREATER THAN 160 Stop: 05/13/17 19:00 Escitalopram Oxalate (Lexapro) 5 mg PO DAILY [facility] PRN Reason: Protocol Stop: 05/15/17 08:59 Last Admin: 03/17/17 09:25 Dose: 5 mg Guaifenesin (Robitussin) 200 mg PO Q4HR PRN PRN Reason: Cough or Congestion Stop: 05/13/17 19:00 Heparin Sodium (Porcine) (Heparin) 5,000 units SUBQ Q12HR [facility] Stop: 05/13/17 20:59 Last Admin: 03/17/17 09:25 Dose: 5,000 units Hydroxyzine Pamoate (Vistaril) 50 mg PO Q4H PRN PRN Reason: Anxiety Stop: 05/13/17 20:28 Last Admin: 03/15/17 18:34 Dose: 50 mg Levofloxacin (Levaquin Pb) 500 mg in 100 mls @ 100 mls/hr IV Q24HR [facility] Stop: 05/13/17 20:59 Last Admin: 03/16/17 21:21 Dose: 100 mls/hr Vancomycin HCl 1.25 gm/ Sodium (Chloride) 250 mls @ 165 mls/hr IV Q12H [facility] Stop: 05/14/17 09:59 Last Admin: 03/17/17 11:46 Dose: 165 mls/hr Sodium Chloride (Nacl 0.9%) 1,000 mls @ 75 mls/hr IV .[id number] [facility] Stop: 05/13/17 19:14 Last Admin: 03/16/17 20:15 Dose: 75 mls/hr Insulin Aspart (Novolog) 0 units SUBQ ACHS [facility] PRN Reason: Protocol Stop: 05/13/17 20:59 Last Admin: 03/16/17 21:25 Dose: 4 unit Insulin Detemir (Levemir Insulin) 30 units SUBQ HS [facility] PRN Reason: Protocol Stop: 05/13/17 20:59 Last Admin: 03/16/17 22:49 Dose: 10 units Lorazepam (Ativan) 2 mg IM Q4HR PRN; Protocol PRN Reason: Cramp Stop: 05/13/17 13:51 Last Admin: 03/14/17 15:20 Dose: 2 mg Miscellaneous (Vancomycin Iv Per Pharmacy) 1 ea [facility] PRN [facility] Stop: 05/13/17 19:14 Ondansetron HCl (Zofran) 4 mg IV Q8H PRN PRN Reason: Nausea / Vomiting Stop: 05/13/17 19:00 Last Admin: 03/14/17 23:08 Dose: 4 mg Trazodone HCl (Desyrel) 50 mg PO HS PRN; Protocol PRN Reason: Insomnia Stop: 05/13/17 19:52 Zolpidem Tartrate (Ambien) 10 mg PO HS PRN PRN Reason: Insomnia Stop: 05/13/17 19:00 Last Admin: 03/17/17 02:25 Dose: 10 mg General: weak, alert HEENT: NC/AT, PERRLA Neck: Supple Lungs: CTAB Cardiovascular: RRR, Normal S1, Normal S2, without murmur Abdomen: soft, non-tender, non-distended, positive bowel sound Extremities: clear Neurological: no change Internal Medicine Assmt/Plan - Assessment Assessment: UNCONTROLLED DM HYPONATREMIA SUICIDAL IDEATION DIABETIC FOOT ULCER - Plan Plan: continue ivabx am labs ivf for hydration continue current tx Nutritional Asmnt/Malnutr-PDOC - Dietary Evaluation Malnutrition Findings (Please click <Entered> for more info): Nutritional Asmnt/Malnutrition Start: 03/15/17 11: 32 Text: Status: Complete Freq: Document 03/15/17 11:33 GSUN (Rec: 03/15/17 11:50 GSUN [email or web address]) Nutritional Asmnt/Malnutrition Patient General Information Nutritional Screening Consult Diagnosis Uncontrolled DM, hyponatremia, suicidal ideation, diabetic foot ulcer Pertinent Medical Hx/Surgical Hx ER: DM, psychosis, drug abuse meth, smoker, cholecystectomy Subjective Information 42 year old female, 5250, sitter at bedside. RD consult for BG. Pt was lethargic and guarded during visit, unable to compelte physical assessment. Unable to obtain CBW due to bedscale improperly calibrated. Pt reported UBW 130lb, recent weight loss CBW around 125lb, did not eleborate. Spoke to HAT BLOCKING MACHINE OPERATOR at bedside, HAT BLOCKING MACHINE OPERATOR stated pt slept through breakfast, will encourage lunch. Current Diet Order/ Nutrition Support [id number] Pertinent Medications Novolog, Levemir, Vancomycin, Zofran Pertinent Labs 03/14: A1c 9.4, glucose 231 Nutritional Hx/Data Height 5 ft 6 in Height (Calculated Centimeters) 167.6 Current Weight (lbs) 144 lb Weight (Calculated Kilograms) 65.3 Weight (Calculated Grams) 84222.3 Usual body Weight (lbs) 130 Hundred Body Weight 130 Weight Status Approriate GI Symptoms Skin Integrity/Comment: Nathaniel Vidal. digital strategy director: left foot decubitus ulceration. Estimated Nutritional Goals Calories/Kcals/Kg UBW/IBW 130lb/59.1kg Kcals Calculated 1478-1773kcal (25-30kcal/kg) Protein Calculated 59-71g (1-1.2g/kg) Fluid: ml 1478-1773ml (1ml/kcal) Nutritional Problem 1. Problem Problem Altered nutrition related laboratory values related to Etiology DM aeb Signs/Symptoms: A1c 9.4, glucose 231 on adm, diabetic foot ulcer Intervention/Recommendation Comments 1. Continue with [address] Informed pt of diet, pt agreeable to plan. 2. Offered DM nutrition edu, pt declined at this time. Pt made aware RD/resources available. Expected Outcomes/Goals Expected Outcomes/Goals 1. PO intake to meet at least 75% of estimated nutritional needs. 2. Improvements in skin integrity, diabetic foot ulcer .
--- NOTE | 2017-03-17 13:02 | Internal Medicine Prog Note ---
Internal Medicine Subjective - Subjective Service Date: 03/17/17 (DC SUMMARY [id number]) Patient is:: awake, verbal, agitated Per staff patient has:: no adverse event Internal Medicine Objective - Results Result Diagrams: 03/17/17 06:40 03/17/17 06:40 Recent Labs: Laboratory Last Values WBC 5.9 Th/cmm (4.8-10.8) D 03/17/17 06:40 RBC 4.07 Mil/cmm (3.80-5.10) 03/17/17 06:40 Hgb 11.5 gm/dL (11.7-15.5) L 03/17/17 06:40 Hct 34.4 % (35.0-45.0) L D 03/17/17 06:40 MCV 84.4 fl (81-100) 03/17/17 06:40 MCH 28.3 pg (27.0-31.0) 03/17/17 06:40 MCHC Differential 33.5 pg (28.0-36.0) 03/17/17 06:40 RDW 15.3 % (11.5-20.0) 03/17/17 06:40 Plt Count 289 Th/cmm (150-400) 03/17/17 06:40 MPV 8.2 fl 03/17/17 06:40 Neutrophils % 59.4 % (40.0-80.0) 03/17/17 06:40 Lymphocytes % 33.5 % (20.0-50.0) 03/17/17 06:40 Monocytes % 4.5 % (2.0-10.0) 03/17/17 06:40 Eosinophils % 2.3 % (0.0-5.0) 03/17/17 06:40 Basophils % 0.3 % (0.0-2.0) 03/17/17 06:40 PT 9.8 SECONDS (9.5-11.5) 03/14/17 18:50 INR 0.94 (0.5-1.4) 03/14/17 18:50 PTT (Actin FS) 20.1 SECONDS (26.0-38.0) L 03/14/17 18:50 Specimen Source Arterial 03/14/17 16:00 Sample Site Right Radial 03/14/17 16:00 pH 7.41 (7.35-7.45) 03/14/17 16:00 pCO2 41.0 mmHg (35.0-45.0) 03/14/17 16:00 pO2 98.0 mmHg (80.0-100.0) 03/14/17 16:00 HCO3 25.9 mEq/L (20.0-26.0) 03/14/17 16:00 Base Excess 1.2 mEq/L (-3.0-3.0) 03/14/17 16:00 O2 Saturation 98.0 % (92.0-100.0) 03/14/17 16:00 Avelino Test YES 03/14/17 16:00 Vent Rate NA 03/14/17 16:00 Inspired O2 21 03/14/17 16:00 Tidal Volume NA 03/14/17 16:00 PEEP NA 03/14/17 16:00 Pressure (ins/psv/peep) NA 03/14/17 16:00 Critical Value E.PICHARDO 03/14/17 16:00 Sodium 131 mEq/L (136-145) L 03/17/17 06:40 Potassium 4.0 mEq/L (3.5-5.1) 03/17/17 06:40 Chloride 100 mEq/L (98-107) 03/17/17 06:40 Carbon Dioxide 28.4 mEq/L (21.0-31.0) 03/17/17 06:40 Anion Gap 6.6 (7.0-16.0) L 03/17/17 06:40 BUN 17 mg/dL (7-25) 03/17/17 06:40 Creatinine 0.6 mg/dL (0.6-1.2) 03/17/17 06:40 Est GFR ( Amer) > 60.0 ml/min (>90) 03/17/17 06:40 Est GFR (Non-Af Amer) > 60.0 ml/min 03/17/17 06:40 BUN/Creatinine Ratio 28.3 03/17/17 06:40 Glucose 83 mg/dL (70-105) 03/17/17 06:40 POC Glucose 232 MG/DL (70 - 105) H 03/17/17 12:14 Hemoglobin A1c % 9.4 % (4.0-6.0) H 03/14/17 14:40 Calcium 8.9 mg/dL (8.6-10.3) 03/17/17 06:40 Total Bilirubin 0.7 mg/dL (0.3-1.0) 03/14/17 14:40 AST 12 U/L (13-39) L 03/14/17 14:40 ALT 19 U/L (7-52) 03/14/17 14:40 Alkaline Phosphatase 95 U/L (34-104) 03/14/17 14:40 Troponin I 0.01 ng/mL (0.01-0.05) 03/14/17 14:00 Total Protein 7.7 gm/dL (6.0-8.3) 03/14/17 14:40 Albumin 4.6 gm/dL (3.7-5.3) 03/14/17 14:40 Globulin 3.1 gm/dL 03/14/17 14:40 Albumin/Globulin Ratio 1.5 (1.0-1.8) 03/14/17 14:40 Triglycerides 100 mg/dL (<150) 03/14/17 14:00 Cholesterol 152 mg/dL (<200) 03/14/17 14:00 LDL Cholesterol Direct 80 mg/dL (75-193) 03/14/17 14:00 HDL Cholesterol 65 mg/dL (23-92) 03/14/17 14:00 TSH 0.80 uIU/ml (0.34-5.60) 03/14/17 14:00 Serum , Qual NEGATIVE (NEGATIVE) 03/14/17 14:10 Vancomycin Trough 15.8 ug/mL (10-20) 03/16/17 17:30 Urine Opiates Screen NEGATIVE (NEGATIVE) 03/15/17 13:00 Urine Methadone Screen NEGATIVE (NEGATIVE) 03/15/17 13:00 Ur Barbiturates Screen NEGATIVE (NEGATIVE) 03/15/17 13:00 Ur Tricyclics Screen NEGATIVE (NEGATIVE) 03/15/17 13:00 Ur Phencyclidine Scrn NEGATIVE (NEGATIVE) 03/15/17 13:00 Amphetamines Screen NEGATIVE (NEGATIVE) 03/15/17 13:00 U Methamphetamines Scrn NEGATIVE (NEGATIVE) 03/15/17 13:00 U Benzodiazepines Scrn POSITIVE (NEGATIVE) H 03/15/17 13:00 U Cocaine Metab Screen NEGATIVE (NEGATIVE) 03/15/17 13:00 U Cannabinoids Screen NEGATIVE (NEGATIVE) 03/15/17 13:00 RPR NONREACTIVE (NONREACTIVE) 03/14/17 14:40 - Physical Exam Vitals and I&O: Vital Signs Temp 97.3 F 03/17/17 11:51 Pulse 95 03/17/17 11:51 Resp 20 03/17/17 11:51 BP 148/82 03/17/17 11:51 Pulse Ox 97 03/17/17 11:51 Intake & Output 03/16/17 03/17/17 03/17/17 18:59 06:59 18:59 Intake Total 250 250 480 Balance 250 250 480 Weight (lbs) 142 lb 142 lb 142 lb Intake: Intake, IV Amount 250 250 Vancomycin HCl 1.25 gm In 250 250 Sodium Chloride 0.9% 250 ml @ 165 mls/hr IV Q12H [facility] Rx#:[id number] Oral 480 Other: Stool Characteristics Soft Active Medications: Current Medications Acetaminophen (Tylenol) 650 mg PO Q4HR PRN PRN Reason: Pain (Mild) Stop: 05/13/17 19:52 Hydroxyzine Pamoate (Vistaril) 50 mg PO Q4H PRN PRN Reason: Anxiety Stop: 05/13/17 20:28 Last Admin: 03/15/17 18:34 Dose: 50 mg Trazodone HCl (Desyrel) 50 mg PO HS PRN; Protocol PRN Reason: Insomnia Stop: 05/13/17 19:52 General: weak, alert HEENT: NC/AT, PERRLA Neck: Supple Lungs: CTAB Cardiovascular: RRR, Normal S1, Normal S2, without murmur Abdomen: soft, non-tender, non-distended, positive bowel sound Extremities: clear Neurological: no change Internal Medicine Assmt/Plan - Assessment Assessment: UNCONTROLLED DM HYPONATREMIA SUICIDAL IDEATION DIABETIC FOOT ULCER - Plan Plan: continue ivabx am labs ivf for hydration continue current tx Nutritional Asmnt/Malnutr-PDOC - Dietary Evaluation Malnutrition Findings (Please click <Entered> for more info): Nutritional Asmnt/Malnutrition Start: 03/15/17 11: 32 Text: Status: Complete Freq: Document 03/15/17 11:33 GSUN (Rec: 03/15/17 11:50 GSUN [email or web address]) Nutritional Asmnt/Malnutrition Patient General Information Nutritional Screening Consult Diagnosis Uncontrolled DM, hyponatremia, suicidal ideation, diabetic foot ulcer Pertinent Medical Hx/Surgical Hx ER: DM, psychosis, drug abuse meth, smoker, cholecystectomy Subjective Information 42 year old female, 5250, sitter at bedside. RD consult for BG. Pt was lethargic and guarded during visit, unable to compelte physical assessment. Unable to obtain CBW due to bedscale improperly calibrated. Pt reported UBW 130lb, recent weight loss CBW around 125lb, did not eleborate. Spoke to CREDENTIALING MANAGER at bedside, CREDENTIALING MANAGER stated pt slept through breakfast, will encourage lunch. Current Diet Order/ Nutrition Support [address] Pertinent Medications Novolog, Levemir, Vancomycin, Zofran Pertinent Labs 03/14: A1c 9.4, glucose 231 Nutritional Hx/Data Height 5 ft 6 in Height (Calculated Centimeters) 167.6 Current Weight (lbs) 144 lb Weight (Calculated Kilograms) 65.3 Weight (Calculated Grams) 58624.3 Usual body Weight (lbs) 130 [place] Body Weight 130 Weight Status Approriate GI Symptoms Skin Integrity/Comment: Nathaniel Vidal. print controller: left foot decubitus ulceration. Estimated Nutritional Goals Calories/Kcals/Kg UBW/IBW 130lb/59.1kg Kcals Calculated 1478-1773kcal (25-30kcal/kg) Protein Calculated 59-71g (1-1.2g/kg) Fluid: ml 1478-1773ml (1ml/kcal) Nutritional Problem 1. Problem Problem Altered nutrition related laboratory values related to Etiology DM aeb Signs/Symptoms: A1c 9.4, glucose 231 on adm, diabetic foot ulcer Intervention/Recommendation Comments 1. Continue with [address] Informed pt of diet, pt agreeable to plan. 2. Offered DM nutrition edu, pt declined at this time. Pt made aware RD/resources available. Expected Outcomes/Goals Expected Outcomes/Goals 1. PO intake to meet at least 75% of estimated nutritional needs. 2. Improvements in skin integrity, diabetic foot ulcer .
--- NOTE | 2017-03-17 20:13 | Discharge Summary ---
DATE OF DISCHARGE: 03/17/2017 DISCHARGE DIAGNOSES: Uncontrolled diabetes, which is stable; diabetic foot ulcers; suicidal ideation; hyponatremia. HISTORY OF PRESENT ILLNESS: A 42-year-old female was sent for [facility] is brought here for vomiting, abdominal pain. In the ER, the patient's glucose was found to be elevated. For this reason, the patient was admitted. PHYSICAL EXAMINATION: GENERAL: The patient is well developed, well nourished, in no acute distress. VITAL SIGNS: Stable. HEENT: Normocephalic, atraumatic. NECK: Supple. No mass. LUNGS: Clear bilaterally. CARDIOVASCULAR: Regular rate and rhythm. ABDOMEN: Soft, nontender. HOSPITAL COURSE: During the hospital stay, the patient was admitted to the Med/Surg Unit. The patient had a consultation with Dr. Foley. The patient was on a 14-day hold. Due to patient's foot ulcer, the patient had a wound consult, wound care nurse following along with the patient. The patient was kept on IV antibiotics of Levaquin 500 mg q.24h. The patient's glucose was stable. For this reason, the patient is stable for discharge. CONDITION UPON DISCHARGE: Fair. DISPOSITION: [facility]. JOB# [id number]
[2017-03-17] MEDS ORDERED: INSULIN ASPART, RECOMBINANT 100 UNITS/ML SUBQ SCH (21:00)
[2017-03-17] MEDS: INSULIN ASPART, RECOMBINANT 100 UNITS/ML SUBQ SCH (22:19)
[2017-03-17] MEDS: Insulin Detemir 100 units/mL 10mL Vial SUBQ SCH (22:22)
[2017-03-18 07:13] LABS: % EOSINOPHILS 2.6 % (0.0-5.0); % LYMPHOCYTES 31.4 % (20.0-50.0); MEAN CELL VOLUME 84.1 fl (81-100); MEAN CORPUSCULAR HEMOGLOBIN 27.9 pg (27.0-31.0); MEAN CORPUSCULAR HGB CONC 33.2 pg (28.0-36.0); NEUTROPHILE ABSOLUTE 3.3 Th/cmm (1.8-8.0); PLATELET COUNT 307 Th/cmm (150-400); RED BLOOD COUNT 3.41 Mil/cmm (3.80-5.10); RED CELL DISTRIBUTION WIDTH 15.2 % (11.5-20.0); WHITE BLOOD COUNT 5.7 Th/cmm (4.8-10.8)
[2017-03-18 07:39] LABS: HEMATOCRIT 28.6 % (35.0-45.0); HEMOGLOBIN 9.5 gm/dL (11.7-15.5)
[2017-03-18 07:49] LABS: ANION GAP 8.8 (7.0-16.0); BUN - UREA NITROGEN 19 mg/dL (7-25); CALCIUM SERUM 8.4 mg/dL (8.6-10.3); CARBON DIOXIDE 25.7 mEq/L (21.0-31.0); CHLORIDE 100 mEq/L (98-107); CREATININE - SERUM 0.5 mg/dL (0.6-1.2); GLUCOSE 142 mg/dL (70-105); POTASSIUM SERUM 3.5 mEq/L (3.5-5.1); SODIUM SERUM 131 mEq/L (136-145)
[2017-03-18] MEDS: INSULIN ASPART, RECOMBINANT 100 UNITS/ML SUBQ SCH ×4 (09:02→20:49)
--- NOTE | 2017-03-18 11:59 | Internal Medicine Prog Note ---
Internal Medicine Subjective - Subjective Service Date: 03/18/17 Patient is:: awake, verbal Per staff patient has:: no adverse event Internal Medicine Objective - Results Result Diagrams: 03/18/17 06:30 03/18/17 06:30 Recent Labs: Laboratory Last Values WBC 5.7 Th/cmm (4.8-10.8) 03/18/17 06:30 RBC 3.41 Mil/cmm (3.80-5.10) L 03/18/17 06:30 Hgb 9.5 gm/dL (11.7-15.5) L D 03/18/17 06:30 Hct 28.6 % (35.0-45.0) L D 03/18/17 06:30 MCV 84.1 fl (81-100) 03/18/17 06:30 MCH 27.9 pg (27.0-31.0) 03/18/17 06:30 MCHC Differential 33.2 pg (28.0-36.0) 03/18/17 06:30 RDW 15.2 % (11.5-20.0) 03/18/17 06:30 Plt Count 307 Th/cmm (150-400) 03/18/17 06:30 MPV 8.0 fl 03/18/17 06:30 Neutrophils % 57.0 % (40.0-80.0) 03/18/17 06:30 Lymphocytes % 31.4 % (20.0-50.0) 03/18/17 06:30 Monocytes % 9.0 % (2.0-10.0) 03/18/17 06:30 Eosinophils % 2.6 % (0.0-5.0) 03/18/17 06:30 Basophils % 0.0 % (0.0-2.0) 03/18/17 06:30 PT 9.8 SECONDS (9.5-11.5) 03/14/17 18:50 INR 0.94 (0.5-1.4) 03/14/17 18:50 PTT (Actin FS) 20.1 SECONDS (26.0-38.0) L 03/14/17 18:50 Specimen Source Arterial 03/14/17 16:00 Sample Site Right Radial 03/14/17 16:00 pH 7.41 (7.35-7.45) 03/14/17 16:00 pCO2 41.0 mmHg (35.0-45.0) 03/14/17 16:00 pO2 98.0 mmHg (80.0-100.0) 03/14/17 16:00 HCO3 25.9 mEq/L (20.0-26.0) 03/14/17 16:00 Base Excess 1.2 mEq/L (-3.0-3.0) 03/14/17 16:00 O2 Saturation 98.0 % (92.0-100.0) 03/14/17 16:00 Avelino Test YES 03/14/17 16:00 Vent Rate NA 03/14/17 16:00 Inspired O2 21 03/14/17 16:00 Tidal Volume NA 03/14/17 16:00 PEEP NA 03/14/17 16:00 Pressure (ins/psv/peep) NA 03/14/17 16:00 Critical Value E.PICHARDO 03/14/17 16:00 Sodium 131 mEq/L (136-145) L 03/18/17 06:30 Potassium 3.5 mEq/L (3.5-5.1) 03/18/17 06:30 Chloride 100 mEq/L (98-107) 03/18/17 06:30 Carbon Dioxide 25.7 mEq/L (21.0-31.0) 03/18/17 06:30 Anion Gap 8.8 (7.0-16.0) 03/18/17 06:30 BUN 19 mg/dL (7-25) 03/18/17 06:30 Creatinine 0.5 mg/dL (0.6-1.2) L 03/18/17 06:30 Est GFR ( Amer) > 60.0 ml/min (>90) 03/18/17 06:30 Est GFR (Non-Af Amer) > 60.0 ml/min 03/18/17 06:30 BUN/Creatinine Ratio 38.0 03/18/17 06:30 Glucose 142 mg/dL (70-105) H 03/18/17 06:30 POC Glucose 180 MG/DL (70 - 105) H 03/18/17 08:59 Hemoglobin A1c % 9.4 % (4.0-6.0) H 03/14/17 14:40 Calcium 8.4 mg/dL (8.6-10.3) L 03/18/17 06:30 Total Bilirubin 0.7 mg/dL (0.3-1.0) 03/14/17 14:40 AST 12 U/L (13-39) L 03/14/17 14:40 ALT 19 U/L (7-52) 03/14/17 14:40 Alkaline Phosphatase 95 U/L (34-104) 03/14/17 14:40 Troponin I 0.01 ng/mL (0.01-0.05) 03/14/17 14:00 Total Protein 7.7 gm/dL (6.0-8.3) 03/14/17 14:40 Albumin 4.6 gm/dL (3.7-5.3) 03/14/17 14:40 Globulin 3.1 gm/dL 03/14/17 14:40 Albumin/Globulin Ratio 1.5 (1.0-1.8) 03/14/17 14:40 Triglycerides 100 mg/dL (<150) 03/14/17 14:00 Cholesterol 152 mg/dL (<200) 03/14/17 14:00 LDL Cholesterol Direct 80 mg/dL (75-193) 03/14/17 14:00 HDL Cholesterol 65 mg/dL (23-92) 03/14/17 14:00 TSH 0.80 uIU/ml (0.34-5.60) 03/14/17 14:00 Serum , Qual NEGATIVE (NEGATIVE) 03/14/17 14:10 Vancomycin Trough 15.8 ug/mL (10-20) 03/16/17 17:30 Urine Opiates Screen NEGATIVE (NEGATIVE) 03/15/17 13:00 Urine Methadone Screen NEGATIVE (NEGATIVE) 03/15/17 13:00 Ur Barbiturates Screen NEGATIVE (NEGATIVE) 03/15/17 13:00 Ur Tricyclics Screen NEGATIVE (NEGATIVE) 03/15/17 13:00 Ur Phencyclidine Scrn NEGATIVE (NEGATIVE) 03/15/17 13:00 Amphetamines Screen NEGATIVE (NEGATIVE) 03/15/17 13:00 U Methamphetamines Scrn NEGATIVE (NEGATIVE) 03/15/17 13:00 U Benzodiazepines Scrn POSITIVE (NEGATIVE) H 03/15/17 13:00 U Cocaine Metab Screen NEGATIVE (NEGATIVE) 03/15/17 13:00 U Cannabinoids Screen NEGATIVE (NEGATIVE) 03/15/17 13:00 RPR NONREACTIVE (NONREACTIVE) 03/14/17 14:40 - Physical Exam Vitals and I&O: Vital Signs Temp 98.7 F 03/18/17 03:00 Pulse 70 03/18/17 03:00 Resp 18 03/18/17 08:15 BP 102/54 03/18/17 03:00 Pulse Ox 97 03/18/17 03:00 Intake & Output 03/17/17 03/18/17 03/18/17 18:59 06:59 18:59 Intake Total 480 200 Balance 480 200 Weight (lbs) 142 lb 146 lb Intake: Oral 480 200 Other: # Voids 1 Active Medications: Current Medications Acetaminophen (Tylenol) 650 mg PO Q4HR PRN PRN Reason: Pain (Mild) Stop: 05/13/17 19:52 Hydroxyzine Pamoate (Vistaril) 50 mg PO Q4H PRN PRN Reason: Anxiety Stop: 05/13/17 20:28 Last Admin: 03/15/17 18:34 Dose: 50 mg Insulin Aspart (Novolog) 0 units SUBQ ACHS ANA LUISA PRN Reason: Protocol Stop: 05/16/17 20:59 Last Admin: 03/18/17 09:02 Dose: 2 units Insulin Detemir (Levemir Insulin) 30 units SUBQ HS ANA LUISA PRN Reason: Protocol Stop: 05/16/17 20:59 Last Admin: 03/17/17 22:22 Dose: 30 units Trazodone HCl (Desyrel) 50 mg PO HS PRN; Protocol PRN Reason: Insomnia Stop: 05/13/17 19:52 Last Admin: 03/17/17 23:17 Dose: 50 mg General: weak, alert HEENT: NC/AT, PERRLA Neck: Supple Lungs: CTAB Cardiovascular: RRR, Normal S1, Normal S2, without murmur Abdomen: soft, non-tender, non-distended, positive bowel sound Extremities: clear Neurological: no change Internal Medicine Assmt/Plan - Assessment Assessment: UNCONTROLLED DM HYPONATREMIA SUICIDAL IDEATION DIABETIC FOOT ULCER - Plan Plan: am labs continue current tx Nutritional Asmnt/Malnutr-PDOC - Dietary Evaluation Malnutrition Findings (Please click <Entered> for more info): Nutritional Asmnt/Malnutrition Start: 03/15/17 11: 32 Text: Status: Complete Freq: Document 03/15/17 11:33 GSUN (Rec: 03/15/17 11:50 GSUN [email or web address]) Nutritional Asmnt/Malnutrition Patient General Information Nutritional Screening Consult Diagnosis Uncontrolled DM, hyponatremia, suicidal ideation, diabetic foot ulcer Pertinent Medical Hx/Surgical Hx ER: DM, psychosis, drug abuse meth, smoker, cholecystectomy Subjective Information 42 year old female, 5250, sitter at bedside. RD consult for BG. Pt was lethargic and guarded during visit, unable to compelte physical assessment. Unable to obtain CBW due to bedscale improperly calibrated. Pt reported UBW 130lb, recent weight loss CBW around 125lb, did not eleborate. Spoke to BASKETBALL COACH at bedside, BASKETBALL COACH stated pt slept through breakfast, will encourage lunch. Current Diet Order/ Nutrition Support [address] Pertinent Medications Novolog, Levemir, Vancomycin, Zofran Pertinent Labs 03/14: A1c 9.4, glucose 231 Nutritional Hx/Data Height 5 ft 6 in Height (Calculated Centimeters) 167.6 Current Weight (lbs) 144 lb Weight (Calculated Kilograms) 65.3 Weight (Calculated Grams) 25179.3 Usual body Weight (lbs) 130 [place] Body Weight 130 Weight Status Approriate GI Symptoms Skin Integrity/Comment: Nathaniel Vidal. graduate intern: left foot decubitus ulceration. Estimated Nutritional Goals Calories/Kcals/Kg UBW/IBW 130lb/59.1kg Kcals Calculated 1478-1773kcal (25-30kcal/kg) Protein Calculated 59-71g (1-1.2g/kg) Fluid: ml 1478-1773ml (1ml/kcal) Nutritional Problem 1. Problem Problem Altered nutrition related laboratory values related to Etiology DM aeb Signs/Symptoms: A1c 9.4, glucose 231 on adm, diabetic foot ulcer Intervention/Recommendation Comments 1. Continue with [address] Informed pt of diet, pt agreeable to plan. 2. Offered DM nutrition edu, pt declined at this time. Pt made aware RD/resources available. Expected Outcomes/Goals Expected Outcomes/Goals 1. PO intake to meet at least 75% of estimated nutritional needs. 2. Improvements in skin integrity, diabetic foot ulcer .
[2017-03-18] MEDS ORDERED: guaiFENesin 200 MG/10 ML UDC PO PRN (14:45)
[2017-03-18] MEDS ORDERED: Ipratropium Neb 0.5 mg/2.5 mL UD IH PRN (14:45)
[2017-03-18] MEDS ORDERED: Sodium Chloride 0.9% 1,000 ML IV SCH (14:45)
[2017-03-18] MEDS ORDERED: Albuterol Nebulizer 2.5mg/3mL HHN PRN (14:45)
[2017-03-18] MEDS ORDERED: Maalox 30 mL Cup PO PRN (14:45)
[2017-03-18] MEDS ORDERED: Escitalopram Oxalate 5 mg Tab PO SCH (14:46)
[2017-03-18] MEDS: Insulin Detemir 100 units/mL 10mL Vial SUBQ SCH (20:45)
--- NOTE | 2017-03-18 21:01 | Progress Notes ---
DATE: 03/14/2017 SUBJECTIVE: Chart reviewed and the patient interviewed. Also, discussed the patient's condition with the staff and reviewed records and labs. The patient is still slightly confused and anxious. The patient also is restless. The patient also still has difficulty with directions. The patient also is still guarded and is still withdrawn. Otherwise, the patient is compliant with taking her medications, and she is cooperative with her treatment. The patient is on 5250 hold. [facility]ell wanted to take the patient when she has 5250 hold upheld. ASSESSMENT: I will try to talk to [facility] in regard to the hold process and the 5250 hold can be done in [facility]. At the same time, we will continue to work on her confusion and her anxiety and we will continue to follow up. JOB# [id number]
[2017-03-19] MEDS: INSULIN ASPART, RECOMBINANT 100 UNITS/ML SUBQ SCH ×2 (06:47→12:17)
[2017-03-20] MEDS ORDERED: Escitalopram Oxalate 5 mg Tab PO ONE (10:14)
== END 2017-03-19 14:42 | disposition home or self-care (01) | DRG 637 ==
LOC: ER 13:42 → TELE 19:30 → MSI 03-16 14:00
PROVIDERS: ADMIT Internal Medicine; ATTEND Internal Medicine
PROC: 02HV33Z Insertion of Infusion Device into Superior Vena Cava, Percutaneous Approach (ICD-10-PCS; principal; 2017-03-14)
DX: E11.65 Type 2 diabetes mellitus with hyperglycemia (principal); E11.00 Type 2 diabetes mellitus with hyperosmolarity without nonketotic hyperglycemic-hyperosmolar coma (NKHHC); F33.2 Major depressive disorder, recurrent severe without psychotic features; L97.429 Non-pressure chronic ulcer of left heel and midfoot with unspecified severity; E87.1 Hypo-osmolality and hyponatremia; E11.621 Type 2 diabetes mellitus with foot ulcer; F17.210 Nicotine dependence, cigarettes, uncomplicated; F15.14 Other stimulant abuse with stimulant-induced mood disorder; T14.91 Suicide attempt; Z88.0 Allergy status to penicillin; Z90.49 Acquired absence of other specified parts of digestive tract; Z79.4 Long term (current) use of insulin
CPT/HCPCS: 36415-UA; 36600-90; 71010-TC; 80048-TC; 80053-TC; 80061-TC; 80202-TC; 80307; 82803-TC; 82947-TC; 82948-90; 83036-90; 84443-TC; 84484-TC; 84703-TC; 85007-TC; 85025-TC; 85027-TC; 85610-TC; 85730-TC; 86592-TC; 93005; 94760; 96374; 96375; J0696; J1644; J1815; J1956; J2001; J2060; J2405; J3370; J7030; Q0177; Z7610